=== PATIENT | male | born 1930 | race Caucasian/White ===

== ENCOUNTER 2017-03-25 19:57 | Emergency (ER) | payer MEDICARE ==
[~2017-03-25] VITALS: Ht 177.8 cm; Wt 80.2 kg
[~2017-03-25 19:57] MED LIST: ASPI-496 PO; CEFU500T PO; DONE10TA7 PO; ENAL2.5T PO; ENOX40SY4 SQ; FINA5TAB4 PO; LEVO500T47 PO; LOVA10TA PO; MEMA5TAB PO; METF500T4 PO; METO-93 PO; NITR100C6 PO; OMEP20CA9 PO; SOLI5TAB2 PO; SPIR25TA3 PO; TEMA15CA PO; VIT1CAPS9 PO
== END 2017-03-25 21:58 | disposition left against medical advice (07) ==
LOC: ED 21:52
DX: Z53.21 Procedure and treatment not carried out due to patient leaving prior to being seen by health care provider (principal)

== ENCOUNTER 2017-07-07 14:50 | Inpatient (IN) | payer MEDICARE ==
[~2017-07-07] VITALS: Ht 177.8 cm; Wt 82.7 kg
[2017-07-07] MEDS ORDERED: SODIUM CHLORIDE 0.9% 1,000 ML IV ONE ×2 (15:14→18:11)
[2017-07-07] MEDS ORDERED: SODIUM CHLORIDE FLUSH 10ML SYR IVF ONE (15:30)
[2017-07-07] MEDS ORDERED: ONDANSETRON 2MG/ML, 2ML IVPush ONE (15:30)
[2017-07-07] MEDS ORDERED: ONDANSETRON 2MG/ML, 2ML ONE (15:43)
[2017-07-07 15:54] LABS: MEAN CORPUSCULAR HEMOGLOBIN 32.2 pg (27.5-34.5); MEAN CORPUSCULAR HGB CONC 33.2 g/dL (33.2-36.2); MEAN CORPUSCULAR VOLUME 96.9 fL (81-97); MEAN PLATELET VOLUME 8.9 fL (7.4-10.4); PLATELET COUNT 387 x10^3/uL (130-400); RED BLOOD COUNT 4.92 x10^6/uL (4.38-5.82); RED CELL DISTRIBUTION WIDTH 14.7 % (9.4-14.8)
[2017-07-07 15:55] LABS: RAPID INFLUENZA A Negative (Negative); RAPID INFLUENZA B Negative (Negative)
[2017-07-07 16:06] LABS: ALBUMIN 3.8 g/dL (3.4-5.0); ANION GAP 13 mmol/L (5-15); CALCIUM 9.2 mg/dL (8.5-10.1); CHLORIDE 105 mmol/L (98-107)
[2017-07-07 16:10] LABS: ALANINE AMINOTRANSFERASE 33 U/L (12-78); ALKALINE PHOSPHATASE 70 U/L (45-117); BILIRUBIN,TOTAL 0.8 mg/dL (0.2-1.0); CREATININE 1.42 mg/dL (0.7-1.3); TOTAL PROTEIN 7.9 g/dL (6.4-8.2)
[2017-07-07 16:37] LABS: MD YES
[2017-07-07] MEDS ORDERED: CARB15DR EACHEYE (16:37)
[2017-07-07] MEDS ORDERED: ENAL2.5T PO (16:37)
[2017-07-07] MEDS ORDERED: SPIR25TA3 PO (16:37)
[2017-07-07 16:40] LABS: BAND#(MANUAL) 0.71 x10^3/uL; BANDS%(MANUAL) 3 % (0-7); LYMPH#(MANUAL) 0.24 x10^3/uL (1-3.4); LYMPHS% (MANUAL) 1 % (22-44); MONOS#(MANUAL) 1.19 x10^3/uL (0.3-2.7); MONOS% (MANUAL) 5 % (2-9); SEG#(MANUAL) 21.57 x10^3/uL (1.8-6.8); SEGS% (MANUAL) 91 % (42-75)
[2017-07-07 16:41] LABS: <PLATELET ESTIMATE> ADEQUATE; <PLT MORPHOLOGY> NORMAL PLT MORPH; <RBC MORPHOLOGY> NORMAL
[2017-07-07] MEDS ORDERED: OMNIPAQUE 350 MG/ML, 100ML BOTTLE ONE (16:59)
[2017-07-07 17:27] LABS: MICROSCOPIC AUTO
[2017-07-07 17:40] LABS: CULTURE INDICATED? YES
[2017-07-07] MEDS ORDERED: CEFTRIAXONE PMX 1GM/50ML 50 ML IVPB ONE (18:00)
[2017-07-07] MEDS ORDERED: CEFTRIAXONE PMX 1GM/50ML 50 ML ONE (18:01)
[2017-07-07] MEDS ORDERED: SODIUM CHLORIDE FLUSH 10ML SYR IVF PRN (18:30)
[2017-07-07] MEDS ORDERED: SODIUM CHLORIDE 0.9% 1,000 ML IV SCH (19:29)
[2017-07-07] MEDS ORDERED: GLUCAGON 1 MG IM PRN (19:30)
[2017-07-07] MEDS ORDERED: DEXTROSE 50%, 50ML SYRINGE IVPush PRN (19:30)
[2017-07-07] MEDS ORDERED: PROMETHAZINE 25 MG/ML, 1ML IM PRN (19:30)
[2017-07-07] MEDS ORDERED: TEMAZEPAM 15 MG CAPSULE PO PRN (19:30)
[2017-07-07] MEDS ORDERED: ONDANSETRON 2MG/ML, 2ML IVPush PRN (19:30)
[2017-07-07] MEDS ORDERED: DEXTROSE 4 GM TAB.CHEW PO PRN (19:30)
[2017-07-07 20:02] VITALS: BP 110/63
[2017-07-07] MEDS ORDERED: OXYBUTYNIN CHLORIDE 5 MG TABLET PO SCH (21:00)
[2017-07-07] MEDS: SODIUM CHLORIDE FLUSH 10ML SYR IVF SCH (23:01)
[2017-07-07] MEDS: MEMANTINE 5MG TABLET PO SCH (23:02)
[2017-07-07] MEDS: ENOXAPARIN 40 MG/0.4 ML SQ SCH (23:02)
[2017-07-07] MEDS: INSULIN ASPART 100 UNITS/ML, PEN SQ-INSULIN SCH (23:02)
[2017-07-07] MEDS: DONEPEZIL 10 MG TABLET PO SCH (23:02)
[2017-07-08 02:24] LABS: ANION GAP 9 mmol/L (5-15); CALCIUM 8.8 mg/dL (8.5-10.1); CHLORIDE 105 mmol/L (98-107)
[2017-07-08 02:25] LABS: CREATININE 0.88 mg/dL (0.7-1.3)
[2017-07-08 02:36] VITALS: BP 118/52
[2017-07-08 02:59] LABS: BASOPHILS # (AUTO) 0.05 x10^3/uL (0-0.1); BASOPHILS % (AUTO) 0 % (0-1); EOSINOPHILS # (AUTO) 0.04 x10^3/uL (0-0.4); EOSINOPHILS % (AUTO) 0 % (1-7); LYMPHOCYTES # (AUTO) 1.13 x10^3/uL (1-3.4); LYMPHOCYTES % (AUTO) 7 % (22-44); MD NO; MEAN CORPUSCULAR HEMOGLOBIN 32.4 pg (27.5-34.5); MEAN CORPUSCULAR HGB CONC 33.7 g/dL (33.2-36.2); MEAN CORPUSCULAR VOLUME 96.3 fL (81-97); MEAN PLATELET VOLUME 8.3 fL (7.4-10.4); MONOCYTES # (AUTO) 0.92 x10^3/uL (0.2-0.8); MONOCYTES % (AUTO) 6 % (2-9); NEUTROPHILS # (AUTO) 14.23 x10^3/uL (1.8-6.8); NEUTROPHILS % (AUTO) 87 % (42-75); PLATELET COUNT 358 x10^3/uL (130-400); RED BLOOD COUNT 4.47 x10^6/uL (4.38-5.82); RED CELL DISTRIBUTION WIDTH 14.9 % (9.4-14.8)
[2017-07-08] MEDS: CEFTRIAXONE 1,000 MG in DEXTROSE 5% 50 ML IVPB SCH ×2 (06:03→17:45)
[2017-07-08] MEDS: INSULIN ASPART 100 UNITS/ML, PEN SQ-INSULIN SCH ×4 (07:00→20:54)
[2017-07-08] MEDS: SODIUM CHLORIDE FLUSH 10ML SYR IVF SCH ×2 (07:56→20:53)
[2017-07-08] MEDS: ENALAPRIL 2.5MG TABLET PO SCH (07:56)
[2017-07-08] MEDS: MEMANTINE 5MG TABLET PO SCH ×2 (07:56→20:53)
[2017-07-08] MEDS: FINASTERIDE 5 MG TABLET PO SCH (07:56)
[2017-07-08] MEDS: ASPIRIN 81 MG TABLET EC PO SCH (07:56)
[2017-07-08] MEDS: METOPROLOL SUCCINATE 50 MG TAB.ER.24H PO SCH (07:57)
[2017-07-08 08:00] VITALS: BP 115/60
[2017-07-08] MEDS ORDERED: SPIRONOLACTONE 25 MG TABLET PO SCH (09:00)
[2017-07-08 14:08] VITALS: BP 123/55
[2017-07-08] MEDS: SODIUM CHLORIDE 0.9% 1,000 ML IV SCH (17:45)
[2017-07-08 19:59] VITALS: BP 128/62
[2017-07-08] MEDS: DONEPEZIL 10 MG TABLET PO SCH (20:52)
[2017-07-08] MEDS: ENOXAPARIN 40 MG/0.4 ML SQ SCH (20:53)
[2017-07-08] MEDS: SIMVASTATIN 5 MG TABLET PO SCH (20:53)
[2017-07-09 01:34] VITALS: BP 110/65
[2017-07-09] MEDS: SODIUM CHLORIDE 0.9% 1,000 ML IV SCH ×2 (03:58→16:23)
[2017-07-09 05:07] LABS: CLOSTRIDIUM DIFFICILE ANTIGEN POSITIVE; CLOSTRIDIUM DIFFICILE TOXIN NEGATIVE (Negative)
[2017-07-09] MEDS: CEFTRIAXONE 1,000 MG in DEXTROSE 5% 50 ML IVPB SCH ×2 (06:37→18:04)
[2017-07-09 07:26] LABS: BASOPHILS # (AUTO) 0.03 x10^3/uL (0-0.1); BASOPHILS % (AUTO) 0 % (0-1); EOSINOPHILS # (AUTO) 0.65 x10^3/uL (0-0.4); EOSINOPHILS % (AUTO) 5 % (1-7); LYMPHOCYTES # (AUTO) 0.58 x10^3/uL (1-3.4); LYMPHOCYTES % (AUTO) 5 % (22-44); MD NO; MEAN CORPUSCULAR HEMOGLOBIN 31.8 pg (27.5-34.5); MEAN CORPUSCULAR HGB CONC 33.4 g/dL (33.2-36.2); MEAN CORPUSCULAR VOLUME 95.2 fL (81-97); MEAN PLATELET VOLUME 8.5 fL (7.4-10.4); MONOCYTES # (AUTO) 0.72 x10^3/uL (0.2-0.8); MONOCYTES % (AUTO) 6 % (2-9); NEUTROPHILS # (AUTO) 10.08 x10^3/uL (1.8-6.8); NEUTROPHILS % (AUTO) 84 % (42-75); PLATELET COUNT 295 x10^3/uL (130-400); RED BLOOD COUNT 4.02 x10^6/uL (4.38-5.82); RED CELL DISTRIBUTION WIDTH 15.1 % (9.4-14.8)
[2017-07-09 07:42] VITALS: BP 114/73
[2017-07-09] MEDS: INSULIN ASPART 100 UNITS/ML, PEN SQ-INSULIN SCH ×4 (08:26→20:16)
[2017-07-09] MEDS: ENALAPRIL 2.5MG TABLET PO SCH (08:26)
[2017-07-09] MEDS: MEMANTINE 5MG TABLET PO SCH ×2 (08:26→20:22)
[2017-07-09] MEDS: METOPROLOL SUCCINATE 50 MG TAB.ER.24H PO SCH (08:27)
[2017-07-09] MEDS: SODIUM CHLORIDE FLUSH 10ML SYR IVF SCH ×2 (08:27→20:22)
[2017-07-09] MEDS: ASPIRIN 81 MG TABLET EC PO SCH (08:27)
[2017-07-09] MEDS: FINASTERIDE 5 MG TABLET PO SCH (08:27)
[2017-07-09 13:38] VITALS: BP 109/78
[2017-07-09] MEDS: ONDANSETRON ODT 4 MG PO PRN (16:35)
[2017-07-09 19:52] VITALS: BP 105/66
[2017-07-09] MEDS: ENOXAPARIN 40 MG/0.4 ML SQ SCH (20:22)
[2017-07-09] MEDS: SIMVASTATIN 5 MG TABLET PO SCH (20:22)
[2017-07-09] MEDS: DONEPEZIL 10 MG TABLET PO SCH (20:22)
[2017-07-10 02:41] VITALS: BP 108/74
[2017-07-10] MEDS: CEFTRIAXONE 1,000 MG in DEXTROSE 5% 50 ML IVPB SCH ×2 (05:57→18:30)
[2017-07-10] MEDS: SODIUM CHLORIDE 0.9% 1,000 ML IV SCH ×2 (05:58→20:48)
[2017-07-10] MEDS: INSULIN ASPART 100 UNITS/ML, PEN SQ-INSULIN SCH ×4 (07:00→20:36)
[2017-07-10 08:01] VITALS: BP 113/72
[2017-07-10] MEDS: MEMANTINE 5MG TABLET PO SCH ×2 (08:52→20:47)
[2017-07-10] MEDS: ENALAPRIL 2.5MG TABLET PO SCH (08:53)
[2017-07-10] MEDS: ASPIRIN 81 MG TABLET EC PO SCH (08:53)
[2017-07-10] MEDS: METOPROLOL SUCCINATE 50 MG TAB.ER.24H PO SCH (08:53)
[2017-07-10] MEDS: FINASTERIDE 5 MG TABLET PO SCH (08:53)
[2017-07-10] MEDS: SODIUM CHLORIDE FLUSH 10ML SYR IVF SCH ×2 (09:00→20:49)
[2017-07-10 13:52] VITALS: BP 124/58
[2017-07-10] MEDS: DONEPEZIL 10 MG TABLET PO SCH (20:46)
[2017-07-10] MEDS: SIMVASTATIN 5 MG TABLET PO SCH (20:47)
[2017-07-10] MEDS: ENOXAPARIN 40 MG/0.4 ML SQ SCH (20:48)
[2017-07-10 21:50] VITALS: BP 119/53
[2017-07-10 22:12] VITALS: BP 119/53
[2017-07-11] MEDS: ONDANSETRON ODT 4 MG PO PRN (00:53)
[2017-07-11 02:22] VITALS: BP 121/56
[2017-07-11] MEDS: CEFTRIAXONE 1,000 MG in DEXTROSE 5% 50 ML IVPB SCH (06:15)
[2017-07-11 08:04] VITALS: BP 113/56
[2017-07-11] MEDS: INSULIN ASPART 100 UNITS/ML, PEN SQ-INSULIN SCH ×2 (08:25→11:55)
[2017-07-11] MEDS: METOPROLOL SUCCINATE 50 MG TAB.ER.24H PO SCH (09:21)
[2017-07-11] MEDS: ASPIRIN 81 MG TABLET EC PO SCH (09:21)
[2017-07-11] MEDS: FINASTERIDE 5 MG TABLET PO SCH (09:21)
[2017-07-11] MEDS: ENALAPRIL 2.5MG TABLET PO SCH (09:21)
[2017-07-11] MEDS: SODIUM CHLORIDE FLUSH 10ML SYR IVF SCH (09:22)
[2017-07-11] MEDS: MEMANTINE 5MG TABLET PO SCH (09:22)
[2017-07-11 13:36] VITALS: BP 133/54
== END 2017-07-11 17:54 | DRG 682 ==
LOC: ED 18:16 → 4WST 21:00
PROVIDERS: ADMIT Family Medicine; ATTEND Family Medicine
DX: N17.9 Acute kidney failure, unspecified (principal); G93.40 Encephalopathy, unspecified; E87.2 Acidosis; E11.22 Type 2 diabetes mellitus with diabetic chronic kidney disease; N39.0 Urinary tract infection, site not specified; I12.9 Hypertensive chronic kidney disease with stage 1 through stage 4 chronic kidney disease, or unspecified chronic kidney disease; E86.0 Dehydration; N12 Tubulo-interstitial nephritis, not specified as acute or chronic; I25.10 Atherosclerotic heart disease of native coronary artery without angina pectoris; A08.4 Viral intestinal infection, unspecified; E78.5 Hyperlipidemia, unspecified; F03.90 Unspecified dementia, unspecified severity, without behavioral disturbance, psychotic disturbance, mood disturbance, and anxiety; J44.9 Chronic obstructive pulmonary disease, unspecified; K70.30 Alcoholic cirrhosis of liver without ascites; N18.2 Chronic kidney disease, stage 2 (mild); Z79.82 Long term (current) use of aspirin; Z85.46 Personal history of malignant neoplasm of prostate; Z85.828 Personal history of other malignant neoplasm of skin; Z87.891 Personal history of nicotine dependence
CPT/HCPCS: 36415; 71045; 74177; 80048; 80053; 81001; 82962; 83605; 83690; 85025; 86140; 87040; 87086; 87324; 87400; 87493; 93005; 96361; 96365; 96375; J0696; J1650; J1815; J2405; Q0162; Q9967; J7030

== ENCOUNTER 2018-12-18 21:09 | Observation (INO) | payer MEDICARE ==
[~2018-12-18] VITALS: Ht 177.8 cm; Wt 72.8 kg
[~2018-12-18 21:09] MED LIST changes: +CARB15DR3 EACHEYE; +METF500T17 PO; -METF500T4 PO; -SPIR25TA3 PO; +SPIR25TA5 PO
--- NOTE | 2018-12-18 21:11 | NUR ---
PER JOHN, THEY WERE CALLED BY NEIGHBORS WHO HAVE BEEN LOOKING IN ON PT HIS IS CURRENTLY HOSPITALIZED AND HAS BEEN SO FOR THE LAST 6 DAYS, SHE IS APPARENTLY THE PRIMARY CAREGIVER AND PT HAS SOME MILD DEMENTIA. NEIGHBORS WERE CONCERNED FOR HIS WELL BEING, PT IS WELL KEMPT, JOHN NOTES TRAILOR WAS CLEAN. JOHN STATES THAT PT REQUIRES ASSIST WITH AMBULATION AT THIS TIME.
--- NOTE | 2018-12-18 21:26 | NUR ---
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 PT'S NEIGHBOR CALLED AND STATED PT HAS BEEN WANDERING , H/X DEMENTIA. PT ALSO C/O B/L LEG PAIN. MONITORS APPLIED, SIDERAILS UP X2, CALL LIGHT WITHIN REACH
[2018-12-18 21:36] LABS: BASOPHILS # (AUTO) 0.07 x10^3/uL (0-0.1); BASOPHILS % (AUTO) 1 % (0-1); EOSINOPHILS # (AUTO) 0.18 x10^3/uL (0-0.4); EOSINOPHILS % (AUTO) 2 % (1-7); LYMPHOCYTES # (AUTO) 1.93 x10^3/uL (1-3.4); LYMPHOCYTES % (AUTO) 22 % (22-44); MD NO; MEAN CORPUSCULAR HEMOGLOBIN 32.1 pg (27.5-34.5); MEAN CORPUSCULAR HGB CONC 32.6 g/dL (33.2-36.2); MEAN CORPUSCULAR VOLUME 98.4 fL (81-97); MEAN PLATELET VOLUME 8.9 fL (7.4-10.4); MONOCYTES # (AUTO) 0.64 x10^3/uL (0.2-0.8); MONOCYTES % (AUTO) 8 % (2-9); NEUTROPHILS % (AUTO) 67 % (42-75); PLATELET COUNT 359 x10^3/uL (130-400); RED CELL DISTRIBUTION WIDTH 14.9 % (9.4-14.8)
--- NOTE | 2018-12-18 21:36 | NUR ---
UNABLE TO COMPLETE MEDICATION REC WITH PT, PT CONFUSED AND STATED " I DON'T TAKE ANY MEDICATION".
[2018-12-18 21:46] LABS: ALANINE AMINOTRANSFERASE 22 U/L (12-78); ALBUMIN 3.8 g/dL (3.4-5.0); ANION GAP 5 mmol/L (5-15); CALCIUM 9.1 mg/dL (8.5-10.1); CHLORIDE 110 mmol/L (98-107); CREATININE 1.27 mg/dL (0.7-1.3)
[2018-12-18 21:52] LABS: ALKALINE PHOSPHATASE 81 U/L (45-117); BILIRUBIN,TOTAL 0.2 mg/dL (0.2-1.0); TOTAL PROTEIN 7.5 g/dL (6.4-8.2); TROPONIN I < 0.015 ng/mL (0.000-0.045)
--- NOTE | 2018-12-18 21:58 | NUR ---
EKG COMPLETED, EKG SHOWED TO ERP AND PLACED IN PT'S CHART
--- NOTE | 2018-12-18 22:19 | NUR ---
FOUND PT STANDING IN ROOM WITH MONITOR WIRES STRETCHED OUT, ASSISTED PT BACK TO [facility], REMINDED PT TO NOT GET OOB BY HIMSELF TO USE CALL LIGHT FOR ASSISTANCE. PT STATED " I'M OK, I CAN WALK, THERE IS NOTHING WRONG WITH ME.'. PT RESTING Calmly, monitors in place, call light within reach, fan (sup) notified of event.
[2018-12-18 23:03] VITALS: BP 189/82
[2018-12-18] MEDS: HEPARIN 5,000 UNITS/ML, 1ML SQ SCH (23:30)
[2018-12-18] MEDS ORDERED: ENALAPRILAT 1.25 MG/ML, 2ML IVPush PRN (23:30)
[2018-12-18] MEDS ORDERED: GUAIFENESIN/DM 200-20MG, 10ML UDC PO PRN (23:30)
[2018-12-18] MEDS ORDERED: ONDANSETRON ODT 4 MG PO PRN (23:30)
[2018-12-18] MEDS ORDERED: POLYETHYLENE GLYCOL 17 GM PACKET PO PRN (23:30)
[2018-12-18] MEDS ORDERED: HALOPERIDOL 5 MG/ML IVPush PRN (23:30)
[2018-12-18] MEDS ORDERED: ACETAMINOPHEN 325 MG TABLET PO PRN (23:30)
[2018-12-18] MEDS ORDERED: hydrALAzine 20 MG/ML, 1ML IVPush PRN (23:30)
[2018-12-18] MEDS ORDERED: IBUPROFEN 600 MG TABLET PO PRN (23:30)
[2018-12-19 01:32] VITALS: BP 161/77
[2018-12-19] MEDS: HEPARIN 5,000 UNITS/ML, 1ML SQ SCH ×3 (07:30→22:19)
[2018-12-19 07:52] VITALS: BP 156/72
[2018-12-19 14:40] VITALS: BP 122/56
[2018-12-19] MEDS ORDERED: TEMAZEPAM 15 MG CAPSULE PO PRN (16:30)
[2018-12-19 20:47] VITALS: BP 132/59
[2018-12-19] MEDS: ATORVASTATIN 10 MG TABLET PO SCH (21:12)
[2018-12-20 01:02] VITALS: BP 135/69
[2018-12-20] MEDS: METOPROLOL SUCCINATE 100 MG TAB.ER.24H PO SCH (05:21)
[2018-12-20] MEDS: OMEPRAZOLE 20 MG CAPSULE.DR PO SCH (05:21)
[2018-12-20 05:56] LABS: ANION GAP 4 mmol/L (5-15); CALCIUM 9.1 mg/dL (8.5-10.1); CHLORIDE 111 mmol/L (98-107)
[2018-12-20 05:57] LABS: CREATININE 0.86 mg/dL (0.7-1.3)
[2018-12-20] MEDS: HEPARIN 5,000 UNITS/ML, 1ML SQ SCH ×3 (07:30→23:30)
[2018-12-20] MEDS: FINASTERIDE 5 MG TABLET PO SCH (08:22)
[2018-12-20 08:34] VITALS: BP 154/88
[2018-12-20 13:27] VITALS: BP 140/56
[2018-12-20] MEDS: ATORVASTATIN 10 MG TABLET PO SCH (19:52)
[2018-12-20 19:55] VITALS: BP 148/70
[2018-12-21 01:16] VITALS: BP 141/70
[2018-12-21] MEDS: OMEPRAZOLE 20 MG CAPSULE.DR PO SCH (05:28)
[2018-12-21] MEDS: METOPROLOL SUCCINATE 100 MG TAB.ER.24H PO SCH (05:28)
[2018-12-21] MEDS: HEPARIN 5,000 UNITS/ML, 1ML SQ SCH ×3 (07:30→23:26)
[2018-12-21 07:45] VITALS: BP 136/70
[2018-12-21] MEDS: FINASTERIDE 5 MG TABLET PO SCH (08:28)
[2018-12-21 14:50] VITALS: BP 121/63
[2018-12-21 19:42] VITALS: BP 142/68
[2018-12-21] MEDS: ATORVASTATIN 10 MG TABLET PO SCH (21:00)
[2018-12-22 01:48] VITALS: BP 125/63
[2018-12-22] MEDS: OMEPRAZOLE 20 MG CAPSULE.DR PO SCH (05:22)
[2018-12-22] MEDS: METOPROLOL SUCCINATE 100 MG TAB.ER.24H PO SCH (05:22)
[2018-12-22] MEDS: HEPARIN 5,000 UNITS/ML, 1ML SQ SCH ×3 (07:30→23:30)
[2018-12-22 08:10] VITALS: BP 134/71
[2018-12-22] MEDS: FINASTERIDE 5 MG TABLET PO SCH (09:49)
[2018-12-22 13:15] VITALS: BP 125/64
[2018-12-22 19:29] VITALS: BP 148/70
[2018-12-22] MEDS: ATORVASTATIN 10 MG TABLET PO SCH (21:27)
[2018-12-23 01:09] VITALS: BP 123/70
[2018-12-23] MEDS: OMEPRAZOLE 20 MG CAPSULE.DR PO SCH (05:13)
[2018-12-23] MEDS: METOPROLOL SUCCINATE 100 MG TAB.ER.24H PO SCH (05:13)
[2018-12-23] MEDS: HEPARIN 5,000 UNITS/ML, 1ML SQ SCH (07:30)
[2018-12-23 07:44] VITALS: BP 138/71
[2018-12-23] MEDS: FINASTERIDE 5 MG TABLET PO SCH (10:04)
== END 2018-12-23 11:58 | disposition home or self-care (01) ==
LOC: ED 21:41 → INTOOBSV 22:11 → EDIP 22:11 → 3NE 22:50
PROVIDERS: ADMIT Family Medicine; ATTEND Family Medicine
DX: R62.7 Adult failure to thrive (principal); E78.5 Hyperlipidemia, unspecified; I12.9 Hypertensive chronic kidney disease with stage 1 through stage 4 chronic kidney disease, or unspecified chronic kidney disease; E11.22 Type 2 diabetes mellitus with diabetic chronic kidney disease; N18.9 Chronic kidney disease, unspecified; F02.80 Dementia in other diseases classified elsewhere, unspecified severity, without behavioral disturbance, psychotic disturbance, mood disturbance, and anxiety; G30.1 Alzheimer's disease with late onset; N40.0 Benign prostatic hyperplasia without lower urinary tract symptoms; J44.9 Chronic obstructive pulmonary disease, unspecified; K21.9 Gastro-esophageal reflux disease without esophagitis; G47.00 Insomnia, unspecified; K74.60 Unspecified cirrhosis of liver; I25.10 Atherosclerotic heart disease of native coronary artery without angina pectoris; Z85.46 Personal history of malignant neoplasm of prostate; Z85.828 Personal history of other malignant neoplasm of skin; Z87.891 Personal history of nicotine dependence; Z79.82 Long term (current) use of aspirin; Z79.84 Long term (current) use of oral hypoglycemic drugs; Z79.899 Other long term (current) drug therapy
CPT/HCPCS: 36415; 80048; 80053; 80307; 84484; 85025; 93005; 97162; 97165; 99284; G0378; Q0177